=== PATIENT | female | born 1995 | race Caucasian/White ===

== ENCOUNTER 2017-04-26 14:29 | Emergency (ER) | payer BC ==
[~2017-04-26] VITALS: Ht 172.7 cm; Wt 63.5 kg
[~2017-04-26 14:29] MED LIST: ACETAMINOPHEN-1 EAC1 PO; FLAGYL500 MG PO; LIORESAL 10 MG10 MG PO; NAPROSYN500 MG PO; ULTRAM50 MG PO
[2017-04-26 14:42] LABS: URINE BILIRUBIN NEGATIVE (Negative); URINE BLOOD 2+ (Negative); URINE CLARITY CLEAR; URINE COLOR YELLOW; URINE GLUCOSE-RANDOM NEGATIVE (Negative); URINE KETONES NEGATIVE (Negative); URINE LEUKOCYTES-REFLEX 1+ (Negative); URINE NITRITE-REFLEX NEGATIVE (Negative); URINE PROTEIN NEGATIVE (Negative); URINE SPECIFIC GRAVITY 1.015 (1.005-1.030); URINE UROBILINOGEN 0.2 E.U./dl (0.2-1.0)
[2017-04-26 15:00] LABS: HEMOGLOBIN 13.7 gm/dL (12.0-15.0); MCH 29.9 pg (26.0-34.0); MPV 8.2 fl. (7.2-11.1); NUCLEATED RBCS 0 /100WBC
[2017-04-26 15:02] LABS: ABSOLUTE LYMPHOCYTES 1.4 thou/uL (0.8-5.3); ABSOLUTE MONOCYTES 0.5 thou/uL (0.0-1.2); ABSOLUTE NEUTROPHILS 5.7 thou/uL (1.6-8.1); BASOPHILS 0.4 %; EOSINOPHILS 0.5 %; HEMATOCRIT 40.4 % (37.0-47.0); LYMPHOCYTES 18.2 %; MCHC 33.8 g/dL (28.0-37.0); MCV 88.4 fL (80.0-100.0); MONOCYTES 6.8 %; PLATELET COUNT* 217 thou/uL (150-400); POLYS 74.1 %; RBC 4.56 mil/uL (4.20-5.00); WBC 7.7 thou/uL (4.0-11.0)
[2017-04-26 15:08] LABS: CALCIUM 8.6 mg/dL (8.5-10.1); CREATININE 0.6 mg/dL (0.6-1.3); POTASSIUM 3.4 mmol/L (3.5-5.1)
[2017-04-26 15:13] LABS: ALBUMIN 3.8 g/dL (3.4-5.0); TOTAL BILIRUBIN 0.5 mg/dL (<0.1-1.0)
[2017-04-26 15:45] LABS: SQUAMOUS >10 Many /LPF (0-3)
[2017-04-26 15:46] LABS: URINE RBC 3-10 Few /HPF (0-2)
[2017-04-26 15:47] LABS: BACTERIA-REFLEX 1-9 Few /HPF (None Seen); CASTS None Seen /LPF (None Seen); CRYSTALS None Seen /LPF (None Seen); URINE WBC-REFLEX 0-5 Rare /HPF (0-5)
[2017-04-26 16:56] VITALS: BP 121/68
== END 2017-04-26 16:57 | disposition home or self-care (01) ==
LOC: M.ERS 14:29
PROVIDERS: Nurse Practitioner Family
DX: Z32.01 Encounter for pregnancy test, result positive (principal); R10.9 Unspecified abdominal pain

== ENCOUNTER → 2017-06-16 | Outpatient (CLI) | payer BC ==
[~2017-06-16] MED LIST changes: +PHENERGAN 25 MG25 M1 PO
== END ==
LOC: M.RAD 13:37
DX: M43.16 Spondylolisthesis, lumbar region (principal)

== ENCOUNTER 2018-01-09 15:08 | Emergency (ER) | payer BC ==
[~2018-01-09] VITALS: Ht 172.7 cm; Wt 61.2 kg
[~2018-01-09 15:08] MED LIST changes: -PHENERGAN 25 MG25 M1 PO
[2018-01-09] MEDS ORDERED: PHENERGAN 25 MG25 M1 PO (17:02)
[2018-01-09 17:20] VITALS: BP 117/68
== END 2018-01-09 17:20 | disposition home or self-care (01) ==
LOC: M.ERS 15:08
DX: S10.83XA Contusion of other specified part of neck, initial encounter (principal); S00.83XA Contusion of other part of head, initial encounter; Y08.89XA Assault by other specified means, initial encounter; Y93.89 Activity, other specified; Y92.89 Other specified places as the place of occurrence of the external cause; Y99.8 Other external cause status

== ENCOUNTER 2018-12-11 19:32 | Emergency (ER) | payer BC ==
[~2018-12-11] VITALS: Ht 167.6 cm; Wt 63.5 kg
[~2018-12-11 19:32] MED LIST changes: +PHENERGAN 25 MG25 M1 PO
[2018-12-11] MEDS ORDERED: NOHOMEMEDICATIONS (19:44)
[2018-12-11 20:13] LABS: URINE BILIRUBIN NEGATIVE (Negative); URINE BLOOD 3+ (Negative); URINE CLARITY CLEAR; URINE COLOR YELLOW; URINE GLUCOSE-RANDOM NEGATIVE (Negative); URINE KETONES NEGATIVE (Negative); URINE LEUKOCYTES-REFLEX 1+ (Negative); URINE NITRITE-REFLEX NEGATIVE (Negative); URINE PROTEIN NEGATIVE (Negative); URINE SPECIFIC GRAVITY 1.025 (1.005-1.030); URINE UROBILINOGEN 0.2 E.U./dl (0.2-1.0)
[2018-12-11 20:42] LABS: MUCUS None Seen strn/LPF (None Seen); SQUAMOUS >10 Many /LPF (0-3)
[2018-12-11 20:43] LABS: BACTERIA-REFLEX 1-9 Few /HPF (None Seen); CASTS None Seen /LPF (None Seen); CRYSTALS None Seen /LPF (None Seen); URINE WBC-REFLEX 6-15 Few /HPF (0-5)
[2018-12-11] MEDS ORDERED: BACTRIM DS TAB1 EACH PO (20:47)
[2018-12-11] MEDS ORDERED: KEFLEX500 M1 PO (20:48)
[2018-12-11 21:47] VITALS: BP 132/74
== END 2018-12-11 21:47 | disposition home or self-care (01) ==
LOC: M.ERS 19:32
PROVIDERS: Physician Assistant
DX: I73.9 Peripheral vascular disease, unspecified (principal); N39.0 Urinary tract infection, site not specified

== ENCOUNTER 2019-05-20 10:10 | Emergency (ER) | payer OTHER ==
[~2019-05-20] VITALS: Ht 175.3 cm; Wt 63.5 kg
[~2019-05-20 10:10] MED LIST changes: +BACTRIM DS TAB1 EACH PO; +KEFLEX500 M1 PO; +NOHOMEMEDICATIONS
[2019-05-20] MEDS ORDERED: [UNRECOGNIZED DRUG - REMARK] (10:22)
[2019-05-20 11:46] VITALS: BP 106/65
== END 2019-05-20 11:47 | disposition home or self-care (01) ==
LOC: M.ERS 10:10
DX: M79.604 Pain in right leg (principal); M79.89 Other specified soft tissue disorders

== ENCOUNTER 2019-10-31 23:55 | Emergency (ER) | payer OTHER ==
[~2019-10-31] VITALS: Ht 175.3 cm; Wt 63.5 kg
[~2019-10-31 23:55] MED LIST changes: +[UNRECOGNIZED DRUG - REMARK]
[2019-11-01] MEDS ORDERED: ERYTHROMYCIN E3.5 G2 OPHTHALMIC (01:13)
[2019-11-01 01:23] VITALS: BP 123/79
[2019-11-01] MEDS ORDERED: APAP W/CODEINE1 TA2 PO (20:53)
== END 2019-11-01 01:25 | disposition home or self-care (01) ==
LOC: M.ERS 23:55
DX: S05.02XA Injury of conjunctiva and corneal abrasion without foreign body, left eye, initial encounter (principal); X58.XXXA Exposure to other specified factors, initial encounter; Y93.89 Activity, other specified; Y92.89 Other specified places as the place of occurrence of the external cause; Y99.8 Other external cause status

== ENCOUNTER 2020-01-14 17:08 | Emergency (ER) | payer OTHER ==
[~2020-01-14] VITALS: Ht 172.7 cm; Wt 63.5 kg
[~2020-01-14 17:08] MED LIST changes: +APAP W/CODEINE1 TA2 PO; +ERYTHROMYCIN E3.5 G2 OPHTHALMIC
[2020-01-14] MEDS ORDERED: BIRTH CONTROL (17:21)
[2020-01-14 17:32] LABS: URINE BILIRUBIN NEGATIVE (Negative); URINE BLOOD 1+ (Negative); URINE CLARITY CLEAR; URINE COLOR YELLOW; URINE GLUCOSE-RANDOM NEGATIVE (Negative); URINE KETONES NEGATIVE (Negative); URINE LEUKOCYTES-REFLEX 1+ (Negative); URINE NITRITE-REFLEX NEGATIVE (Negative); URINE PROTEIN NEGATIVE (Negative); URINE SPECIFIC GRAVITY 1.015 (1.005-1.030); URINE UROBILINOGEN 0.2 E.U./dl (0.2-1.0)
[2020-01-14 17:45] LABS: CASTS None Seen /LPF (None Seen); MUCUS None Seen strn/LPF (None Seen); SQUAMOUS >10 Many /LPF (0-3)
[2020-01-14 17:46] LABS: CRYSTALS None Seen /LPF (None Seen); URINE RBC 0-2 Rare /HPF (0-2); URINE WBC-REFLEX 0-5 Rare /HPF (0-5)
[2020-01-14 17:55] LABS: ABSOLUTE EOSINOPHILS 0.1 thou/uL (0.0-0.7); ABSOLUTE LYMPHOCYTES 1.9 thou/uL (0.8-5.3); ABSOLUTE MONOCYTES 0.7 thou/uL (0.0-1.2); ABSOLUTE NEUTROPHILS 7.2 thou/uL (1.6-8.1); BASOPHILS 0.2 %; EOSINOPHILS 0.5 %; HEMATOCRIT 43.3 % (37.0-47.0); HEMOGLOBIN 14.7 gm/dL (12.0-15.0); MCH 29.7 pg (26.0-34.0); MCHC 33.9 g/dL (28.0-37.0); MCV 87.6 fL (80.0-100.0); MONOCYTES 6.8 %; MPV 8.6 fl. (7.2-11.1); NUCLEATED RBCS 0 /100WBC; PLATELET COUNT* 223 thou/uL (150-400); POLYS 73.5 %; RBC 4.94 mil/uL (4.20-5.00); RDW-CV 12.8 % (10.5-14.5); WBC 9.8 thou/uL (4.0-11.0)
[2020-01-14 18:04] LABS: CALCIUM 9.5 mg/dL (8.5-10.1); CREATININE 0.9 mg/dL (0.6-1.3); POTASSIUM 3.4 mmol/L (3.5-5.1)
[2020-01-14 18:14] LABS: ALBUMIN 4.1 g/dL (3.4-5.0); TOTAL BILIRUBIN 0.6 mg/dL (<0.1-1.0); TOTAL PROTEIN 7.8 g/dL (6.4-8.2)
[2020-01-14] MEDS ORDERED: NORCO 5-325 TA1 EAC2 PO (19:28)
[2020-01-14] MEDS ORDERED: ONDANSETRON HCL4 M2 PO (19:28)
[2020-01-14] MEDS ORDERED: IBUPROFEN 800800 M1 PO (19:28)
[2020-01-14 21:18] VITALS: BP 122/74
== END 2020-01-14 21:19 | disposition home or self-care (01) ==
LOC: M.ERS 17:08
PROVIDERS: Nurse Practitioner Family
DX: N83.201 Unspecified ovarian cyst, right side (principal)

== ENCOUNTER 2020-07-16 20:48 | Emergency (ER) | payer OTHER ==
[~2020-07-16] VITALS: Ht 175.3 cm; Wt 61.2 kg
[~2020-07-16 20:48] MED LIST changes: +BIRTH CONTROL; +IBUPROFEN 800800 M1 PO; +NORCO 5-325 TA1 EAC2 PO; +ONDANSETRON HCL4 M2 PO
[2020-07-16 21:00] VITALS: BP 131/84
== END 2020-07-16 21:28 | disposition left against medical advice (07) ==
LOC: M.ERS 20:48
DX: Z53.21 Procedure and treatment not carried out due to patient leaving prior to being seen by health care provider (principal)